=== PATIENT | female | born 1995 | race African-American/Black ===

== ENCOUNTER 2018-07-01 14:01 | Emergency (ER) | payer SELFPAY ==
[~2018-07-01] VITALS: Ht 162.6 cm; Wt 74.8 kg
[~2018-07-01 14:01] MED LIST: AGM875T PO; ALBU17AE23 IH; CEFP500T4 PO; CEPH500C PO; DOXY100C2 PO; IBUP400T22 PO; METH4TAB PO; METO10TA3 PO; ONDAN4ODT PO; PRCD5U PO; PRD20T PO; SLMFT1E INH; TRAM50TA2 PO
--- OUTSIDE RECORDS SUMMARY | 2018-07-01 14:06 | XMS REPORT | CCD ---
Author Author HEATHER GODFREY Unknown Address [address] [place], [place] [address] Care Team Providers Care Compressed Gas Equipment Mechanic Name Role Phone TRISTEN KEANE, PERFECTO Wright Attphys CEDRICKKENN ANTONsurselma Vital Signs Unknown or Not Available. Allergies Allergy Code Allergy Type Reaction Status No Known Allergies 0 No known allergies Active Procedures Procedure Code Procedure Type Date CT ABD AND PELVIS W/O CONTRAST 190666624 SNOMED CT 2015 COMPREHENSIVE METABOLIC PANEL 713015542 SNOMED CT 2015 CBC W/ AUTO DIFF (RFLX MAN DIFF IF IND) 4130657 SNOMED CT 12/17/2015 CULTURE URINE 493162767 SNOMED CT 12/17/2015 TEST URINE 063204508 SNOMED CT 12/17/2015 UA ROUTINE C&S IF IND 406827292 SNOMED CT 12/17/2015 ^CULTURE AEROBIC ID [id number] SNOMED CT 12/17/2015 ^CULTURE URINE IDENTIFICATION 494000792 SNOMED CT 2015 ^CBC W/AUTO DIFF 8435725 SNOMED CT 12/17/2015 ^UA WITH MICRO 082374226 SNOMED CT 12/17/2015 History of Immunizations Unknown or Not Available. Problems Unknown or Not Available. Results COMPREHENSIVE METABOLIC PANEL - Collect Date/Time: 12/17/2015 21:10 Test Name Code Test Result Test Units Test Ref Range GLUCOSE 2345-7 96 MG/DL L=70 H=100 SODIUM 2951-2 139 MEQ/L L=135 H=148 POTASSIUM 2823-3 3.7 MEQ/L L=3.5 H=5.3 CHLORIDE 2075-0 107 MEQ/L L=96 H=110 CO2 2028-9 19 MEQ/L L=22 H=29 BUN 3094-0 5 MG/DL L=8 H=22 CREATININE 2160-0 0.6 MG/DL L=0.6 H=1.6 SGOT/AST 1920-8 12 IU/L L=10 H=40 SGPT/ALT 1742-6 13 IU/L L=8 H=54 ALK PHOS 6768-6 60 IU/L L=35 H=115 TOTAL PROTEIN 2885-2 7.2 G/DL L=5.5 H=8.5 ALBUMIN 1751-7 4.3 G/DL L=3.1 H=5.4 TOTAL BILI 1975-2 0.7 MG/DL L=0.0 H=1.5 CALCIUM 19286-8 8.9 MG/DL L=8.2 H=10.6 AGE 20 yrs GFR NonAA 126 GFR AA 153 eGFR >60 N/A eGFR AA* >60 N/A CBC W/ AUTO DIFF (RFLX MAN DIFF IF IND) - Collect Date/Time: 12/17/2015 21:10 Test Name Code Test Result Test Units Test Ref Range WBC 22854-7 10.0 TH/CMM L=4.5 H=10.8 RBC 789-8 3.63 ML/CMM L=4.20 H=5.40 HGB 718-7 10.9 G/DL L=12.0 H=16.0 HCT 4544-3 33.2 % L=37.0 H=47.0 MCV 92 FL L=81 H=99 MCH 30.0 PG L=27.0 H=33.0 MCHC 32.8 G/DL L=31.0 H=36.0 RDW SD 46 FL L=36 H=50 RDW CV 13.6 % L=0.0 H=14.8 MPV 10.2 FL L=9.3 H=12.5 PLT 777-3 202 TH/CMM L=130 H=440 NRBC# 0.00 TH/CMM L=0.00 H=0.00 NRBC% 0.0 /100WBC L=0.0 H=2.0 %NEUT 78.0 % %LYMP 8.8 % %MONO 12.5 % %EOS 0.2 % %BASO 0.1 % #NEUT 7.84 TH/CMM L=2.10 H=8.20 #LYMP 0.88 TH/CMM L=0.90 H=5.20 #MONO 1.25 TH/CMM L=0.16 H=1.00 #EOS 0.02 TH/CMM L=0.00 H=0.80 #BASO 0.01 TH/CMM L=0.00 H=0.20 MANUAL DIFF NOT IND N/A UA ROUTINE C&S IF IND - Collect Date/Time: 12/17/2015 20:00 Test Name Code Test Result Test Units Test Ref Range COLOR YELLOW N/A NL: YELLOW APPEARANCE HAZY N/A NL: CLEAR SPEC GRAV >=1.030 N/A NL: 1.002 - 1.022 pH 6.0 N/A NL: 5 - 9 PROTEIN 30 N/A NL: NEGATIVE mg/dl GLUCOSE NEGATIVE N/A NL: NEGATIVE mg/dl KETONE 40 N/A NL: NEGATIVE mg/dl BILIRUBIN NEGATIVE N/A NL: NEGATIVE BLOOD LARGE N/A NL: NEGATIVE NITRITE POSITIVE N/A NL: NEGATIVE LEUK SCREEN NEGATIVE N/A NL: NEGATIVE MICRO INDICATED? SEE BELOW N/A WBC/HPF 5-10 N/A NL: NEGATIVE RBC/HPF 0-5 N/A NL: NEGATIVE CASTS/LPF NEGATIVE N/A NL: NEGATIVE CRYSTALS NEGATIVE N/A NL: NEGATIVE MUCOUS THRDS 1+ N/A NL: NEGATIVE BACTERIA 3+++ N/A NL: NEGATIVE EPITH CELLS 2++ SQUAMOUS N/A NL: NEGATIVE TRICHOMONAS NEGATIVE N/A NL: NEGATIVE YEAST NEGATIVE N/A NL: NEGATIVE CULT SET UP? YES N/A TEST URINE - Collect Date/Time: 12/17/2015 20:00 Test Name Code Test Result Test Units Test Ref Range TEST UR 2106-3 NEGATIVE N/A Active Medications Unknown or Not Available. Medications Administered During Visit Unknown or Not Available. Encounters Encounter Diagnosis Diagnosis Code Start Date Urinary tract infectious disease 54643743 12/17/2015 Social History Smoking Status Code Start Date End Date Never smoker 599818687 Patient Decision Aids Unknown or Not Available. Discharge Instructions You were admitted to [facility] on 12/17/2015 18:09 with a principal diagnosis of Urinary tract infection, site not specified You had the following tests done: CBC W/ AUTO DIFF (RFLX MAN DIFF IF IND) COMPREHENSIVE METABOLIC PANEL TEST URINE UA ROUTINE C&S IF IND You were discharged from [facility] on 12/18/2015 00:05 Should you have any questions prior to discharge, please contact a member of your healthcare team. If you have left the hospital and have any questions, please contact your primary care physician. Chief Complaint and Reason For Visit Chief Complaint Date of Onset PAIN ALL OVER URINARY PROBLEM Function Status Unknown or Not Available. Plan of Care Unknown or Not Available. Referral/Transition of Care Unknown or Not Available.
--- OUTSIDE RECORDS SUMMARY | 2018-07-01 14:06 | XMS REPORT | CCD ---
Author Author CAITIE QUIROZ Organization Unknown Address [address] [facility] [address] [place] [address] Care Team Providers Care Senior Network Architect Name Role Phone CHURCH, PRIYANK DO Attphys CHURCH, PRIYANK DO Prisurg Allergies Allergy Code Allergy Type Reaction Status No Known Allergies 0 Drug allergy Active Active Medications Unknown or Not Available. Problems Unknown or Not Available. Procedures Procedure Code Procedure Type Date CT HEAD W/O CONTRAST 462618999 SNOMED CT 03/20/2016 Results Unknown or Not Available. Encounters Encounter Diagnosis Diagnosis Code Start Date Postconcussion syndrome 58212774 03/20/2016 Function Status Unknown or Not Available. History of Immunizations Unknown or Not Available. Plan of Treatment Unknown or Not Available. Social History Smoking Status Code Start Date End Date Never smoker [id number] Vital Signs Unknown or Not Available. Function Status Unknown or Not Available. Goals Unknown or Not Available. ASSESSMENTS Unknown or Not Available. Health Concerns Section Unknown or Not Available.
--- OUTSIDE RECORDS SUMMARY | 2018-07-01 14:06 | XMS REPORT | CCD ---
Author Author CATE KINNEY Organization Unknown Address [address] [facility] [address] [place], [place] [address] Care Team Providers Care Locomotive Inspector Name Role Phone ROSINA PHYS, NIMO ER Attphys ROSINA PHYS, NIMO ER Prisurg Vital Signs Unknown or Not Available. Allergies Allergy Code Allergy Type Reaction Status No Known Allergies 0 No known allergies Active Procedures Procedure Code Procedure Type Date CX CHEST [address] 07/26/2015 C REACTIVE PROTEIN 66703118 SNOMED CT 07/26/2015 ^CBC W/AUTO DIFF 3546637 SNOMED CT 07/26/2015 RAPID DRUG SCREEN 797289605 SNOMED CT 07/26/[address] 07/26/2015 TROPONIN-I ADV 017278271 SNOMED CT 07/26/2015 D DIMER QUANT 089322517 SNOMED CT 07/26/2015 COMPREHENSIVE METABOLIC PANEL 795002252 SNOMED CT 2015 CBC W/ AUTO DIFF (RFLX MAN DIFF IF IND) 6903810 SNOMED CT 07/26/2015 History of Immunizations Unknown or Not Available. Problems Unknown or Not Available. Results COMPREHENSIVE METABOLIC PANEL - Collect Date/Time: 07/26/2015 15:30 Test Name Code Test Result Test Units Test Ref Range GLUCOSE 2345-7 77 MG/DL L=70 H=100 SODIUM 2951-2 142 MEQ/L L=135 H=148 POTASSIUM 2823-3 3.6 MEQ/L L=3.5 H=5.3 CHLORIDE 2075-0 108 MEQ/L L=96 H=110 CO2 2028-9 21 MEQ/L L=22 H=29 BUN 3094-0 8 MG/DL L=8 H=22 CREATININE 2160-0 0.7 MG/DL L=0.6 H=1.6 SGOT/AST 1920-8 17 IU/L L=10 H=40 SGPT/ALT 1742-6 11 IU/L L=8 H=54 ALK PHOS 6768-6 64 IU/L L=35 H=115 TOTAL PROTEIN 2885-2 7.4 G/DL L=5.5 H=8.5 ALBUMIN 1751-7 4.3 G/DL L=3.1 H=5.4 TOTAL BILI 1975-2 0.7 MG/DL L=0.0 H=1.5 CALCIUM 98522-0 9.7 MG/DL L=8.2 H=10.6 AGE 20 yrs GFR NonAA 106 GFR AA 128 eGFR >60 N/A eGFR AA* >60 N/A RAPID DRUG SCREEN - Collect Date/Time: 07/26/2015 17:59 Test Name Code Test Result Test Units Test Ref Range Cannabinoids (THC) NON-NEGATIVE N/A NEG: < 50 ng/ml Phencyclidine (PCP) NEGATIVE N/A NEG: < 25 ng/ ml Cocaine NEGATIVE N/A NEG: < 300 ng/ml Methamphetamine NEGATIVE N/A NEG: < 1000 ng/ml Opiates NEGATIVE N/A NEG: < 300 ng/ml Amphetamine NEGATIVE N/A NEG: < 1000 ng/ml Benzodiazepines NEGATIVE N/A NEG: < 300 ng/ml Tricyclic Antidepres NEGATIVE N/A NEG: < 300 ng/ ml Methadone NEGATIVE N/A NEG: < 300 ng/ml Barbiturates NEGATIVE N/A NEG: < 200 ng/ml Oxycodone NEGATIVE N/A NEG: < 100 ng/ml Propoxyphene (PPX) NEGATIVE N/A NEG: < 300 ng/ ml CBC W/ AUTO DIFF (RFLX MAN DIFF IF IND) - Collect Date/Time: 07/26/2015 15:30 Test Name Code Test Result Test Units Test Ref Range WBC 07941-1 5.4 TH/CMM L=4.5 H=10.8 RBC 789-8 4.11 ML/CMM L=4.20 H=5.40 HGB 718-7 12.1 G/DL L=12.0 H=16.0 HCT 4544-3 37.5 % L=37.0 H=47.0 MCV 91 FL L=81 H=99 MCH 29.4 PG L=27.0 H=33.0 MCHC 32.3 G/DL L=31.0 H=36.0 RDW SD 48 FL L=36 H=50 RDW CV 14.2 % L=0.0 H=14.8 MPV 9.8 FL L=9.3 H=12.5 PLT 777-3 248 TH/CMM L=130 H=440 NRBC# 0.00 TH/CMM L=0.00 H=0.00 NRBC% 0.0 /100WBC L=0.0 H=2.0 %NEUT 43.0 % %LYMP 42.1 % %MONO 10.2 % %EOS 4.3 % %BASO 0.4 % #NEUT 2.32 TH/CMM L=2.10 H=8.20 #LYMP 2.27 TH/CMM L=0.90 H=5.20 #MONO 0.55 TH/CMM L=0.16 H=1.00 #EOS 0.23 TH/CMM L=0.00 H=0.80 #BASO 0.02 TH/CMM L=0.00 H=0.20 MANUAL DIFF NOT IND N/A D DIMER QUANT - Collect Date/Time: 07/26/2015 15:30 Test Name Code Test Result Test Units Test Ref Range D-DIMER QUANT 71845-6 <0.19 MG/L FEU L=0.00 H= 0.50 C REACTIVE PROTEIN - Collect Date/Time: 07/26/2015 18:05 Test Name Code Test Result Test Units Test Ref Range C REACTIVE PROTEIN 1988-5 <0.5 MG/DL L=0.0 H= 1.0 TEST - Collect Date/Time: 07/26/2015 15:30 Test Name Code Test Result Test Units Test Ref Range TEST 2118-8 NEGATIVE N/A TROPONIN-I ADV - Collect Date/Time: 07/26/2015 15:30 Test Name Code Test Result Test [place] [address]-0 <0.04 ng/mL L=0.04 H= 0.40 Active Medications Unknown or Not Available. Medications Administered During Visit Unknown or Not Available. Encounters Encounter Diagnosis Diagnosis Code Start Date Pleuritic pain 8365412 07/26/2015 Social History Smoking Status Code Start Date End Date Never smoker 771976360 Patient Decision Aids Unknown or Not Available. Discharge Instructions You were admitted to [facility] on 07/26/2015 with a principal diagnosis of Pleuritic pain . You were discharged from [facility] on 07/26/2015. Should you have any questions prior to discharge, please contact a member of your healthcare team. If you have left the hospital and have any questions, please contact your primary care physician. Chief Complaint and Reason For Visit Chief Complaint Date of Onset CHEST PAIN Function Status Unknown or Not Available. Plan of Care Unknown or Not Available. Referral/Transition of Care Unknown or Not Available.
--- OUTSIDE RECORDS SUMMARY | 2018-07-01 14:06 | XMS REPORT | CCD ---
Author Author CAITIE QUIROZ Organization Unknown Address [address] [facility] [address] [place] [address] Care Team Providers Care Parcel Contractor Name Role Phone CHURCH, PRIYANK DO Attphys CHURCH, PRIYANK DO Prisurg Allergies Allergy Code Allergy Type Reaction Status No Known Allergies 0 Drug allergy Active Active Medications Unknown or Not Available. Problems Unknown or Not Available. Procedures Procedure Code Procedure Type Date CT HEAD W/O CONTRAST 468493101 SNOMED CT 03/20/2016 Results Unknown or Not Available. Encounters Encounter Diagnosis Diagnosis Code Start Date Postconcussion syndrome 70731609 03/20/2016 Function Status Unknown or Not Available. History of Immunizations Unknown or Not Available. Plan of Treatment Unknown or Not Available. Social History Smoking Status Code Start Date End Date Never smoker 142324033 Vital Signs Unknown or Not Available. Function Status Unknown or Not Available. Goals Unknown or Not Available. ASSESSMENTS Unknown or Not Available. Health Concerns Section Unknown or Not Available.
--- OUTSIDE RECORDS SUMMARY | 2018-07-01 14:07 | XMS REPORT | CCD ---
Author Author CATE KINNEY Organization Unknown Address [address] [facility] [address] [place], [place] [address] Care Team Providers Care Down Filler Name Role Phone ROSINA PHYS, NIMO ER Attphys ROSINA PHYS, NIMO ER Prisurg Vital Signs Unknown or Not Available. Allergies Allergy Code Allergy Type Reaction Status No Known Allergies 0 No known allergies Active Procedures Procedure Code Procedure Type Date CX CHEST [address] 07/26/2015 C REACTIVE PROTEIN 17403745 SNOMED CT 07/26/2015 ^CBC W/AUTO DIFF 9427871 SNOMED CT 07/26/2015 RAPID DRUG SCREEN 957771761 SNOMED CT 07/26/[address] 07/26/2015 TROPONIN-I ADV 732000485 SNOMED CT 07/26/2015 D DIMER QUANT 195896610 SNOMED CT 07/26/2015 COMPREHENSIVE METABOLIC PANEL 102765909 SNOMED CT 2015 CBC W/ AUTO DIFF (RFLX MAN DIFF IF IND) 6324224 SNOMED CT 07/26/2015 History of Immunizations Unknown [...] BILI 1975-2 0.7 MG/DL L=0.0 H=1.5 CALCIUM 62975-9 9.7 MG/DL L=8.2 H=10.6 AGE 20 yrs [...] Result Test Units Test Ref Range WBC 21769-6 5.4 TH/CMM L=4.5 H=10.8 RBC 789-8 4.11 [...] Test Units Test Ref Range D-DIMER QUANT 71395-9 <0.19 MG/L FEU L=0.00 H= 0.50 C [...] Test [place] [address]-7 <0.04 ng/mL L=0.04 H= 0.40 Active Medications Unknown or Not Available. Medications Administered During Visit Unknown or Not Available. Encounters Encounter Diagnosis Diagnosis Code Start Date Pleuritic pain 4076881 07/26/2015 Social History Smoking Status Code Start Date End Date Never smoker 047280760 Patient Decision Aids Unknown or Not Available. Discharge Instructions You were admitted to [facility] on 07/26/2015 with a principal diagnosis of Pleuritic pain . You were discharged from [facility] on 07/26/2015. Should you have any [...]
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
--- OUTSIDE RECORDS SUMMARY | 2018-07-01 14:07 | XMS REPORT | CCD ---
Author Author CATE KINNEY Organization Unknown Address [address] [facility] [address] [place], [place] [address] Care Team Providers Care Director Corporate Compliance Name Role Phone [facility], KENN DO Attphys [facility], KENN DO Prisurg Vital Signs Unknown or Not Available. Allergies Allergy Code Allergy Type Reaction Status No Known Allergies 0 No known allergies Active Procedures Unknown or Not Available. History of Immunizations Unknown or Not Available. Problems Unknown or Not Available. Results Unknown or Not Available. Active Medications Unknown or Not Available. Medications Administered During Visit Unknown or Not Available. 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 Discharge Instructions You were admitted to [facility] on 07/18/2015 10:22 with a principal diagnosis of Chondrocostal junction syndrome [Tietze] You were discharged from [facility] on 07/18/2015 11:36 Should you have any questions prior to discharge, please contact a member of your healthcare team. If you have left the hospital and have any questions, please contact your primary care physician. Chief Complaint and Reason For Visit Chief Complaint Date of Onset CHEST PAIN Function Status Unknown or Not Available. Referral/Transition of Care Unknown or Not Available.
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
[2018-07-01 14:29] LABS: BILIRUBIN,URINE NEGATIVE (NEGATIVE); CLARITY,URINE SLIGHTLY CLOUDY; COLOR,URINE YELLOW; GLUCOSE, URINE (UA) NEGATIVE (NEGATIVE); KETONES,URINE NEGATIVE (NEGATIVE); LEUKOCYTE ESTERASE ,URINE 3+ (NEGATIVE); NITRITE,URINE POSITIVE (NEGATIVE); PH,URINE 7 (5-9); PROTEIN,URINE 2+ (NEGATIVE); UROBILINOGEN,URINE NORMAL (NORMAL)
[2018-07-01 14:36] LABS: BACTERIA,URINE MODERATE /HPF; RBC,URINE RARE /HPF; WBC,URINE >100 /HPF
--- NOTE | 2018-07-01 14:53 | NUR ---
IN TALKING TO PT AT THIS TIME.
[2018-07-01] MEDS ORDERED: cefTRIAXone 1,000 MG/2.86 ml vial (IM ONLY) IM ONE (15:00)
[2018-07-01] MEDS ORDERED: CEPH-507 PO (15:02)
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
[2018-07-01] MEDS ORDERED: PHEN-640 PO (15:03)
[2018-07-01] MEDS ORDERED: LIDOCAINE 1% INJ 20 ML 20 ML VIAL ONE (15:05)
[2018-07-01] MEDS ORDERED: LIDOCAINE 1% INJ 20 ML 20 ML VIAL INJ ONE (15:15)
[2018-07-01 15:30] VITALS: BP 121/71
== END 2018-07-01 15:30 | disposition home or self-care (01) ==
LOC: EDUNIT# 14:01 → ER 14:02
DX: J02.9 Acute pharyngitis, unspecified (principal); N39.0 Urinary tract infection, site not specified; J45.909 Unspecified asthma, uncomplicated; Z87.440 Personal history of urinary (tract) infections; Z87.19 Personal history of other diseases of the digestive system
CPT/HCPCS: 81000; 84703; 87077; 87088; 87186; 87430; 96372; 99285

== ENCOUNTER 2019-06-20 12:21 | Inpatient (IN) | payer SELFPAY ==
[~2019-06-20] VITALS: Ht 165.1 cm; Wt 85.3 kg
[~2019-06-20 12:21] MED LIST changes: +CEPH-507 PO; +PHEN-640 PO
[2019-06-20] MEDS ORDERED: RT-ALBUTEROL SULF 2.5 MG/3 ML PRE-MIX VIAL INH STA ×2 (12:27→12:58)
[2019-06-20] MEDS ORDERED: NS IV 1000 ML 1,000 ML IV SCH (12:27)
[2019-06-20] MEDS ORDERED: NS IV 1000 ML 1,000 ML IV ONE (12:27)
[2019-06-20] MEDS ORDERED: AZITHROMYCIN INJECTION 500 MG in NS (IVPB) 250 ML IV ONE (12:30)
[2019-06-20] MEDS ORDERED: cefTRIAXone FOR IV USE 1,000 MG in WATER (STERILE) FOR INJECTION 10 ML IV ONE (12:30)
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
[2019-06-20 12:50] LABS: ABG BASE EXCESS -4.9 MMOL/L (-2.5-2.5); ABG OXYGEN SATURATION 98 % (94-100); ABG PCO2 24 MMHG (35-45); ABG PH 7.48 (7.37-7.43); ABG PO2 76 MMHG (79-93)
[2019-06-20 12:50] LABS: BASOPHILS % (AUTO) 0 % (0-10); EOSINOPHILS # (AUTO) 0.2 10^3/uL (0.0-0.3); EOSINOPHILS % (AUTO) 3 % (0-10); HEMATOCRIT 37 % (35-52); LYMPHOCYTES # (AUTO) 1.4 X 10^3 (1.0-4.0); LYMPHOCYTES % (AUTO) 20 % (12-44); MEAN CORPUSCULAR HEMOGLOBIN 28 PG (25-34); MEAN CORPUSCULAR HGB CONC 32 G/DL (32-36); MEAN CORPUSCULAR VOLUME 87 FL (80-99); MEAN PLATELET VOLUME 9.5 FL (7.4-10.4); MONOCYTES # (AUTO) 0.5 X 10^3 (0.0-1.0); MONOCYTES % (AUTO) 8 % (0-12); NEUTROPHILS # (AUTO) 4.6 X 10^3 (1.8-7.8); NEUTROPHILS % (AUTO) 69 % (42-75); PLATELET COUNT 348 10^3/uL (130-400); RED CELL DISTRIBUTION WIDTH 13.8 % (10.0-14.5); WHITE BLOOD COUNT 6.7 10^3/uL (4.3-11.0)
[2019-06-20 12:51] LABS: ALLENS TEST YES-POS; INSPIRED O2 ROOM AIR; PATIENT TEMP 36.2; VENTILATOR NO
[2019-06-20 13:00] LABS: INR 0.9 (0.8-1.4)
[2019-06-20] MEDS ORDERED: RT-ALBUTEROL/IPRATROPIUM 3 ML (DUONEB) VIAL INH ONE (13:00)
[2019-06-20 13:07] LABS: ALANINE AMINOTRANSFERASE 17 U/L (0-55); ALBUMIN 4.5 GM/DL (3.2-4.5); ALKALINE PHOSPHATASE 93 U/L (40-136); BILIRUBIN,TOTAL 0.4 MG/DL (0.1-1.0); BUN/CREATININE RATIO 12; CALCIUM 9.2 MG/DL (8.5-10.1); CARBON DIOXIDE 17 MMOL/L (21-32); CHLORIDE 109 MMOL/L (98-107); CREATININE SERUM 0.74 MG/DL (0.60-1.30); GFR ESTIMATED > 60; GLUCOSE 86 MG/DL (70-105); POTASSIUM 3.9 MMOL/L (3.6-5.0); SODIUM 139 MMOL/L (135-145); TOTAL PROTEIN 8.3 GM/DL (6.4-8.2)
--- NOTE | 2019-06-20 13:16 | Diagnostic Imaging Report ---
INDICATION: Shortness of breath. TIME OF EXAM: 1:05 PM COMPARISON: Correlation is made with prior chest from 05/09/2010. FINDINGS: The heart size is normal. The pulmonary vascularity is unremarkable. The lungs are clear. No infiltrate, effusion or pneumothorax is detected. IMPRESSION: No acute cardiopulmonary process is detected. Dictated by: Dictated on workstation # [id number]
[2019-06-20] MEDS ORDERED: OSELTAMIVIR 75 MG (TAMIFLU) CAPSULE PO ONE (13:30)
[2019-06-20] MEDS ORDERED: MAGNESIUM 1 GM/100 ML IVPB 200 ML IV ONE (13:58)
[2019-06-20] MEDS ORDERED: KETAMINE/NaCl 50 MG/5 ML SYRINGE (ED ONLY) IV ONE (14:00)
[2019-06-20] MEDS: MAGNESIUM 1 GM/100 ML IVPB 100 ML IV SCH ×2 (14:20→14:21)
[2019-06-20] MEDS ORDERED: methylPREDNISolone 125 MG (Solu-MEDROL) VIAL IVP ONE (15:00)
[2019-06-20 15:07] VITALS: BP 133/89
--- NOTE | 2019-06-20 15:09 | NUR ---
PATIENT INCREASED WORK OF BREATHING RT HERE WILL PLACE ON VAPOR THERM.
[2019-06-20] MEDS ORDERED: ACETAMINOPHEN 500 MG TAB (TYLENOL) PO ONE (15:15)
--- NOTE | 2019-06-20 15:15 | NUR ---
UP TO BS.
--- NOTE | 2019-06-20 15:18 | NUR ---
ROOM OBTAINED NURSE TO CALL FOR REPORT.
[2019-06-20] MEDS ORDERED: KETOROLAC 30 MG/ML VIAL IVP ONE (15:30)
[2019-06-20 15:31] LABS: BILIRUBIN,URINE NEGATIVE (NEGATIVE); CLARITY,URINE SL CLOUDY; COLOR,URINE YELLOW; GLUCOSE, URINE (UA) NEGATIVE (NEGATIVE); KETONES,URINE TRACE (NEGATIVE); LEUKOCYTE ESTERASE ,URINE NEGATIVE (NEGATIVE); NITRITE,URINE NEGATIVE (NEGATIVE); PH,URINE 7.5 (5-9); PROTEIN,URINE NEGATIVE (NEGATIVE)
[2019-06-20 15:37] LABS: BACTERIA,URINE MODERATE /HPF; WBC,URINE RARE /HPF
--- NOTE | 2019-06-20 16:08 | NUR ---
TO ROOM REPORTS PAIN BETTER AND FEELING LIKE HER BREATHING IS BETTER WITH VAPORTHERM
[2019-06-20 16:09] VITALS: BP 137/89
[2019-06-20] MEDS ORDERED: LORazepam INJ 2 MG/ML (ATIVAN) VIAL IVP ONE (16:15)
--- NOTE | 2019-06-20 17:24 | NUR ---
PAIGE BLOUNT S admitted to room CU3-1, with an admitting diagnosis of ASTHMA,FLU, HYPOXIA, on 06/20/19 from ER via , accompanied by STAFF.PAIGE BLOUNT introduced to surroundings, call light, bed controls, phone, TV, temperature control, lights, meal times, smoking policy, visitor policy, side rail policy, bathrooms and showers. Patient Rights given to patient in the handbook. PAIGE BLOUNT verbalizes understanding that [facility] is not responsible for the loss or damage to any personal effects or valuables that are kept in the patients posession during their hospitalization. The following Patient Care Plans were discussed with the PT: Discharge Planning, INEFFECTIVE BREATHING PATTERN,ANXIETY, and KNOWLEDGE DEFICIT. PAIGE BLOUNT verbalizes understanding of Interdisciplinary Patient Education. Patient and family were informed about the Rapid Response Team and its purpose.
[2019-06-20 17:40] VITALS: BP 93/66
[2019-06-20] MEDS ORDERED: LACTATED RINGERS 1,000 ML IV ONE (17:40)
[2019-06-20] MEDS: LACTATED RINGERS 1,000 ML IV SCH (18:18)
[2019-06-20] MEDS ORDERED: RT-ALBUTEROL/IPRATROPIUM 3 ML (DUONEB) VIAL INH PRN (19:30)
[2019-06-20 20:00] VITALS: BP 136/74
[2019-06-20] MEDS ORDERED: ONDANSETRON 4 MG/2 ML (SDV) Z0FRAN IVP PRN (20:00)
[2019-06-20] MEDS: KETOROLAC 15 MG/ML VIAL IVP PRN (20:11)
[2019-06-20] MEDS: RT-ALBUTEROL/IPRATROPIUM 3 ML (DUONEB) VIAL INH SCH (22:01)
[2019-06-20] MEDS: ACETAMINOPHEN 500 MG TAB (TYLENOL) PO PRN (22:27)
--- NOTE | 2019-06-20 23:58 | NUR ---
Patient transferred to [facility], report given to GAIL Calderon.
[2019-06-21] VITALS (9 sets, daily range): BP systolic 109–142; BP diastolic 64–80
[2019-06-21] MEDS ORDERED: CYCLOBENZAPRINE 10 MG (FLEXERIL) TAB PO SCH
[2019-06-21] MEDS: methylPREDNISolone 40 MG/ML (Solu-MEDROL) VIAL IV SCH ×5 (00:18→23:57)
[2019-06-21] MEDS: RT-ALBUTEROL/IPRATROPIUM 3 ML (DUONEB) VIAL INH SCH ×6 (02:33→20:47)
[2019-06-21] MEDS: LACTATED RINGERS 1,000 ML IV SCH ×2 (02:58→10:54)
[2019-06-21 04:26] LABS: BASOPHILS % (AUTO) 0 % (0-10); EOSINOPHILS % (AUTO) 0 % (0-10); HEMATOCRIT 29 % (35-52); HEMOGLOBIN 9.6 G/DL (11.5-16.0); LYMPHOCYTES % (AUTO) 15 % (12-44); MEAN CORPUSCULAR HEMOGLOBIN 28 PG (25-34); MEAN CORPUSCULAR HGB CONC 33 G/DL (32-36); MEAN CORPUSCULAR VOLUME 86 FL (80-99); MONOCYTES # (AUTO) 0.1 X 10^3 (0.0-1.0); MONOCYTES % (AUTO) 1 % (0-12); NEUTROPHILS # (AUTO) 5.5 X 10^3 (1.8-7.8); NEUTROPHILS % (AUTO) 84 % (42-75); PLATELET COUNT 282 10^3/uL (130-400); RED CELL DISTRIBUTION WIDTH 13.5 % (10.0-14.5); WHITE BLOOD COUNT 6.5 10^3/uL (4.3-11.0)
[2019-06-21 04:55] LABS: ALANINE AMINOTRANSFERASE 14 U/L (0-55); ALBUMIN 3.8 GM/DL (3.2-4.5); ALKALINE PHOSPHATASE 81 U/L (40-136); BILIRUBIN,TOTAL 0.1 MG/DL (0.1-1.0); BUN/CREATININE RATIO 8; CALCIUM 8.7 MG/DL (8.5-10.1); CARBON DIOXIDE 13 MMOL/L (21-32); CHLORIDE 114 MMOL/L (98-107); CREATININE SERUM 0.64 MG/DL (0.60-1.30); GFR ESTIMATED > 60; GLUCOSE 150 MG/DL (70-105); MAGNESIUM 2.2 MG/DL (1.6-2.4); POTASSIUM 4.1 MMOL/L (3.6-5.0); SODIUM 138 MMOL/L (135-145); TOTAL PROTEIN 7.1 GM/DL (6.4-8.2)
[2019-06-21] MEDS: ACETAMINOPHEN 500 MG TAB (TYLENOL) PO PRN (06:01)
[2019-06-21] MEDS: KETOROLAC 15 MG/ML VIAL IVP PRN ×2 (06:01→20:03)
[2019-06-21] MEDS ORDERED: FLU QUADRIvalent (5+ YOA) 2019-2020 (AFLURIA) 0.5 ML IM ONE (07:00)
[2019-06-21] MEDS: OSELTAMIVIR 75 MG (TAMIFLU) CAPSULE PO SCH ×2 (08:43→20:05)
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
[2019-06-21] MEDS ORDERED: KETOROLAC 15 MG/ML VIAL IVP ONE (10:45)
[2019-06-21] MEDS ORDERED: KETOROLAC 15 MG/ML VIAL ONE (10:46)
--- NOTE | 2019-06-21 10:50 | Diagnostic Imaging Report ---
INDICATION: Asthma and hypoxia. Time of exam 10:20 AM Correlation is made with prior chest from 06/20/2019. The heart size is normal. The pulmonary vascularity is unremarkable. The lungs are clear. No infiltrate, effusion or pneumothorax is detected. Impression: No acute cardiopulmonary process is detected. Dictated by: Dictated on workstation # [id number]
--- NOTE | 2019-06-21 18:30 | NUR ---
REC'D PER WC FROM [facility] WITH SCHUYLER RN. ALERT AND ORIENTED, REQUESTING ENSURE CLEAR. VSS. SCDS ON.
[2019-06-22] MEDS: ACETAMINOPHEN 500 MG TAB (TYLENOL) PO PRN
[2019-06-22] MEDS: RT-ALBUTEROL/IPRATROPIUM 3 ML (DUONEB) VIAL INH SCH ×3 (02:09→09:27)
[2019-06-22 03:42] VITALS: BP 134/73
[2019-06-22] MEDS: methylPREDNISolone 40 MG/ML (Solu-MEDROL) VIAL IV SCH ×4 (05:52→23:19)
[2019-06-22] MEDS: KETOROLAC 15 MG/ML VIAL IVP PRN (05:52)
[2019-06-22 08:00] VITALS: BP 141/97
[2019-06-22] MEDS ORDERED: RT-IPRATROPIUM (ATROVENT) 0.5MG/2.5ML AMP IH ONE (08:29)
[2019-06-22] MEDS ORDERED: RT-ALBUTEROL SULF 2.5 MG/3 ML PRE-MIX VIAL ONE (08:29)
[2019-06-22] MEDS: OSELTAMIVIR 75 MG (TAMIFLU) CAPSULE PO SCH ×2 (09:36→21:12)
[2019-06-22] MEDS ORDERED: RT-LEVALBUTEROL (XOPENEX) 1.25 MG/3 ML NEB NON-FORMULARY INH PRN (09:45)
--- NOTE | 2019-06-22 09:54 | Progress Note - Hospitalist ---
[facility] 06/22/19 0954: Subjective HPI/CC On Admission Zeinab is a 23 y/o female that presented to the ER with a 2 day history of progressively worsening and shortness of breath. She has a non productive cough. She states nothing was making it better or worse. She has pain in her chest and upper abdomen and she feels it when she is coughing. There is no radiation of the pain outside of those areas. She denies any other pain associated with her illness. She denies any sick contacts. Patient had a positive influenza type B test and chest x-ray showed no acute cardiopulmonary abnormalities. . Subjective/Events-last exam Patient is alert and oriented and in Mild distress. Currently receiving an hour long treatment. Patient states she needed two treatment ahead of there scheduled time because of SOB. She is really adamant about going home but states she is not feeling better, and feels like she may be getting worse. She is having diffuse joint and muscle pain that is currently 7-8/10 and is constant. She has no appetite and has not been drinking a lot. Urinating and passing gas without issue. She has trouble ambulating do to increase in dizziness and shakiness in the legs Patient had a hard time sleeping last night and had chest pain. ROS: Patient is currently positive for SOB, Chest pain, Muscle and Joint pain, Abdominal pain, feeling of Chills Focused Exam Lactate Level 06/20/19 12:38: Lactic Acid Level 1.09 Objective Exam Vital Signs Vital Signs Date Time Temp Pulse Resp B/P (MAP) Pulse Ox O2 Delivery O2 Flow Rate FiO2 06/22/19 08:36 98 06/22/19 08:00 36.8 104 24 141/97 (112) Room Air 06/21/19 04:00 16.00 06/21/19 02:37 32 Capillary Refill : Less Than 3 Seconds General Appearance: Anxious, Mild Distress HEENT: PERRL/EOMI Neck: Non Tender, Supple Respiratory: Accessory Muscle Use, Decreased Breath Sounds, Rhonci, Wheezing Cardiovascular: Normal Peripheral Pulses, Tachycardia, Other (Tender chest ) Gastrointestinal: Soft, Guarding Extremity: No Pedal Edema, Calf Tenderness Neurologic/Psychiatric: Alert, Oriented x3, director regulatory affairs II-XII Norm as Tested Skin: Normal Color, Warm/Dry Lymphatic: No Adenopathy Results/Procedures Lab Patient resulted labs reviewed. Imaging: Reviewed Imaging Report Assessment/Plan Assessment and Plan Assess & Plan/Chief Complaint Influenza - positive for influenza type B - started on Oseltamivir 75 mg BID PO, should be a 5 day course - Symptomatic treatment ( Ketoralac 15mg Q8 PRN for pain, ondansetron for N/V, Cyclobenzaprine for muscle aches). - will add additional pain medications due to increasing pain - Consider moving back to ICU and adding additional oxygen support - Continue breathing treatments, will increase LACS - MAT protocol - Continue to monitor labs Asthma Exacerbation - currently receiving Albuterol/Ipratropium and Methylprednisone for breathing. Will increase Steroid dose and change Albuterol to less cardio specific medications - change medications to PO - Oxygen as needed - Consider Intravenous magnesium if patient does not improve. DVT prophylaxis - SCDs Consider moving patient to ICU if she does not improve, requiring more breathing treatments and has increasing accessory muscle use. Patient is having increasing pain and SOB. Will monitor Clinical Quality Measures DVT/VTE Risk/Contraindication: Risk Factor Score Per Nursin RFS Level Per Nursing on Admit: 3=High ANTONIA ALICEA MD 06/22/19 1431: Subjective HPI/CC On Admission Date Seen by Provider: Jun 22, 2019 Time Seen by Provider: 09:15 Assessment/Plan Assessment and Plan Assess & Plan/Chief Complaint Called to bedside due to SOB and chest tightness. Started on an hour long breathing treatment and she has improved. Still has significant wheezing but denies much SOB. Patient is actually requesting discharge but home discussed how unsafe that would be. Will add Advair and Singulair and increase IV steroids. Discussed with her RN and RT as well. Diagnosis/Problems Diagnosis/Problems (1) Asthma with acute exacerbation in adult Status: Acute Qualifiers: Qualified Codes: J45.901 - Unspecified asthma with (acute) exacerbation (2) Acute respiratory failure with hypoxia Status: Acute (3) Influenza B Status: Acute Supervisory-Addendum Brief Verification & Attestation Participated in pt care: history, MDM, physical Personally performed: exam, history, MDM, supervision of care Care discussed with: Medical Student Procedures: n/a Results interpretation: Verified all documentation Verification and Attestation of Medical Student E/M Service A medical student performed and documented this service in my presence. I reviewed and verified all information documented by the medical student and made modifications to such information, when appropriate. I personally performed the physical exam and medical decision making. Antonia Alicea, Jun 22, 2019,14:31 [facility] Jun 22, 2019 09:54 ANTONIA ALICEA MD Jun 22, 2019 14:31
[2019-06-22 12:00] VITALS: BP 108/57
[2019-06-22] MEDS: RT-ADVAIR HFA 115/21 MCG PER PUFF IH SCH ×2 (14:37→20:48)
[2019-06-22] MEDS: RT-LEVALBUTEROL (XOPENEX) 1.25 MG/3 ML NEB NON-FORMULARY INH SCH ×2 (14:37→20:48)
[2019-06-22] MEDS ORDERED: IOHEXOL 350 MG/ML 100 ML (OMNIPAQUE 350) VIAL IV ONE (15:00)
[2019-06-22] MEDS ORDERED: CATHETER FLUSH 10 ML SYR IV PRN (15:00)
[2019-06-22] MEDS ORDERED: NS 100 ML (IVPB) BAG IV ONE (15:00)
[2019-06-22] MEDS ORDERED: HOLD METFORMIN - RECEIVED CONTRAST 20 ML VIAL IV SCH (15:00)
--- NOTE | 2019-06-22 15:24 | Diagnostic Imaging Report ---
PROCEDURE: CT angiography of the chest with contrast. TECHNIQUE: Multiple contiguous axial images were obtained through the chest after uneventful bolus administration of intravenous contrast. 3D reconstructed CTA MIP acquisitions were also performed. Auto Exposure Controls were utilized during the CT exam to meet ALARA standards for radiation dose reduction. INDICATION: Asthma and influenza as well as shortness of air. COMPARISON: No prior studies are available for comparison. FINDINGS: There is suboptimal opacification of the pulmonary arterial system. Central pulmonary arteries appear to be patent. No filling defect is seen. Segmental and subsegmental branches are limited in evaluation. The thoracic aorta is normal in caliber. No dissection is seen. No pericardial or pleural fluid is identified. Lungs appear to be clear apart from some minimal subsegmental atelectasis in the right middle lobe and lingula. No infiltrate or mass is identified. Upper abdomen is unremarkable. IMPRESSION: 1. Suboptimal opacification of the pulmonary arterial system. No central emboli are seen. 2. Minimal bibasilar subsegmental atelectasis. The study is otherwise unremarkable. Dictated by: Dictated on workstation # [id number]
[2019-06-22 15:36] LABS: ABG BASE EXCESS -4.4 MMOL/L (-2.5-2.5); ABG OXYGEN SATURATION 98 % (94-100); ABG PCO2 29 MMHG (35-45); ABG PH 7.44 (7.37-7.43); ABG PO2 84 MMHG (79-93)
[2019-06-22 15:37] LABS: ALLENS TEST YES-POS; INSPIRED O2 36%; PATIENT TEMP 36.8; VENTILATOR NO
[2019-06-22] MEDS: HYDROcodone/APAP 5 MG/325 MG (LORTAB) TAB PO PRN ×2 (15:40→23:48)
[2019-06-22 16:00] VITALS: BP 156/96
[2019-06-22 20:00] VITALS: BP 146/94
[2019-06-22] MEDS: MONTELUKAST 10 MG (SINGULAIR) TAB PO SCH (21:12)
[2019-06-22 23:22] VITALS: BP 135/76
[2019-06-23 04:00] VITALS: BP 126/64
[2019-06-23] MEDS: RT-LEVALBUTEROL (XOPENEX) 1.25 MG/3 ML NEB NON-FORMULARY INH SCH ×3 (04:25→15:29)
[2019-06-23] MEDS: methylPREDNISolone 40 MG/ML (Solu-MEDROL) VIAL IV SCH ×4 (06:11→23:38)
[2019-06-23 08:00] VITALS: BP 145/77
[2019-06-23] MEDS: OSELTAMIVIR 75 MG (TAMIFLU) CAPSULE PO SCH ×2 (08:38→20:16)
[2019-06-23] MEDS: HYDROcodone/APAP 5 MG/325 MG (LORTAB) TAB PO PRN ×2 (09:04→23:39)
[2019-06-23 12:00] VITALS: BP 128/75
[2019-06-23] MEDS: RT-ADVAIR HFA 115/21 MCG PER PUFF IH SCH ×2 (15:28→19:20)
--- NOTE | 2019-06-23 15:36 | Progress Note - Hospitalist ---
Subjective HPI/CC On Admission Date Seen by Provider: Jun 23, 2019 Time Seen by Provider: 15:32 Zeinab is a 23 y/o female that presented to the ER with a 2 day history of progressively worsening and shortness of breath. She has a non productive cough. She states nothing was making it better or worse. She has pain in her chest and upper abdomen and she feels it when she is coughing. There is no radiation of the pain outside of those areas. She denies any other pain associated with her illness. She denies any sick contacts. Patient had a positive influenza type B test and chest x-ray showed no acute cardiopulmonary abnormalities. . Subjective/Events-last exam Pt report feeling better and at first is requesting to DC home but upon further conversation is just ready to be out of the hospital. She states she would like her breathing treatments to be q4 again if able because she feels more short of breath the last two hours. She does report increased oral intake today and increased UOP. Family at bedside and encouraged her to stay until she is better. Objective Exam Vital Signs Vital Signs Date Time Temp Pulse Resp B/P (MAP) Pulse Ox O2 Delivery O2 Flow Rate FiO2 06/23/19 15:30 99 Room Air 06/23/19 13:00 82 06/23/19 12:00 37.0 18 128/75 (92) 06/22/19 20:00 30.00 21.00 06/22/19 15:34 21 Capillary Refill : Less Than 3 Seconds General Appearance: No Apparent Distress, WD/WN Respiratory: No Accessory Muscle Use, No Respiratory Distress, Wheezing Cardiovascular: Regular Rate, Rhythm, No Murmur Neurologic/Psychiatric: Alert, Oriented x3 Results/Procedures Lab Patient resulted labs reviewed. Imaging: Reviewed Imaging Report Assessment/Plan Assessment and Plan Assess & Plan/Chief Complaint Influenza B Asthma Exacerbation - Continue Oseltamivir 75 mg BID PO - Symptomatic treatment - Continue Advair and Singulair - MAT protocol, increase to Q4 breathing treatments - Continue to monitor labs - Titrate oxygen to keep sats >90 - Will try decreasing steroids today - Consult pulm tomorrow Her plan is to move back to when she discharges and I recommended outpatient follow up with Pulm in DVT prophylaxis - SCDs Diagnosis/Problems Diagnosis/Problems (1) Asthma with acute exacerbation in adult Status: Acute Qualifiers: Asthma severity: unspecified severity Asthma persistence: unspecified Qualified Codes: J45.901 - Unspecified asthma with (acute) exacerbation (2) Acute respiratory failure with hypoxia Status: Acute (3) Influenza B Status: Acute Clinical Quality Measures DVT/VTE Risk/Contraindication: Risk Factor Score Per Nursin RFS Level Per Nursing on Admit: 3=High ANTONIA ALVES MD Jun 23, 2019 15:36
[2019-06-23] MEDS ORDERED: RT-ALBUTEROL/IPRATROPIUM 3 ML (DUONEB) VIAL INH PRN (15:45)
[2019-06-23 16:59] VITALS: BP 110/59
[2019-06-23] MEDS: RT-ALBUTEROL/IPRATROPIUM 3 ML (DUONEB) VIAL INH SCH ×2 (19:20→21:59)
[2019-06-23] MEDS: MONTELUKAST 10 MG (SINGULAIR) TAB PO SCH (20:16)
[2019-06-23 20:59] VITALS: BP 133/84
[2019-06-24 00:15] VITALS: BP 120/61
[2019-06-24] MEDS: RT-ALBUTEROL/IPRATROPIUM 3 ML (DUONEB) VIAL INH SCH ×6 (02:00→21:46)
[2019-06-24 04:45] VITALS: BP 131/62
[2019-06-24 06:07] LABS: HEMOGLOBIN 10.5 G/DL (11.5-16.0); MEAN PLATELET VOLUME 10.1 FL (7.4-10.4); WHITE BLOOD COUNT 10.6 10^3/uL (4.3-11.0)
[2019-06-24] MEDS: methylPREDNISolone 40 MG/ML (Solu-MEDROL) VIAL IV SCH ×4 (06:11→23:54)
[2019-06-24 06:23] LABS: BUN/CREATININE RATIO 18; CALCIUM 8.9 MG/DL (8.5-10.1); CARBON DIOXIDE 17 MMOL/L (21-32); CHLORIDE 105 MMOL/L (98-107); CREATININE SERUM 0.66 MG/DL (0.60-1.30); GFR ESTIMATED > 60; GLUCOSE 122 MG/DL (70-105); POTASSIUM 4.1 MMOL/L (3.6-5.0); SODIUM 137 MMOL/L (135-145)
[2019-06-24 08:00] VITALS: BP 102/59
[2019-06-24] MEDS: OSELTAMIVIR 75 MG (TAMIFLU) CAPSULE PO SCH ×2 (08:38→19:44)
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
[2019-06-24 12:00] VITALS: BP 118/69
--- NOTE | 2019-06-24 12:58 | NUR ---
"RD ASSESSMENT PMHx: no significant PMH PT INTERACTION: Pt was awake and pleasant during nutrition assessment. Pt states current appetite is poor and has been since 06/20. Note avg PO intake of 52% x4d, per chart review. Pt states following a regular diet at home and has no issues with chewing/swallowing food. Pt states some issues with nausea and one episode of vomiting on 06/22. Pt states some issues with constipation and states her last BM was 06/20. Note last BM recorded on 06/23 and pt not currently on bowel regimen, per chart review. Pt states recent 20-30# wt gain x6mon. Note 23# wt gain x1yr, per chart review. ABNORMAL NUTRITION-RELATED LAB VALUES LOW: HIGH: glu 122 Est. kcal needs: 3501-7717 kcal | 15-20 kcal/kg Est. Pro needs: 68-86 g Pro | 0.8-1.0 g Pro/kg PES STATEMENT: Inadequate oral intake (NI-2.1) related to loss of appetite | nausea | vomiting | constipation as evidenced by pt interview | avg PO intake 52% x4d INTERVENTION: Continue with current diet order of Regular diet. Add Ensure Enlive (vary) to meals BID, for increased kcal intake. Provides 350 kcal and 13 g Pro per serving. Will continue to follow and reassess as pt needs and status change. MONITOR/EVALUATE: PO Intake; Plan of Care; Hydration Status; Weight Status; Lab Values Rema Agudelo, MS, RD, LD"
--- NOTE | 2019-06-24 14:11 | Progress Note - Hospitalist ---
Subjective HPI/CC On Admission Date Seen by Provider: Jun 24, 2019 Time Seen by Provider: 14:05 Zeinab is a 23 y/o female that presented to the ER with a 2 day history of progressively worsening and shortness of breath. She has a non productive cough. She states nothing was making it better or worse. She has pain in her chest and upper abdomen and she feels it when she is coughing. There is no radiation of the pain outside of those areas. She denies any other pain associated with her illness. She denies any sick contacts. Patient had a positive influenza type B test and chest x-ray showed no acute cardiopulmonary abnormalities. . Subjective/Events-last exam Pt reports feeling better. She has been up out of bed and was able to walk to the bathroom without help. Eating better. Still SOB but better than yesterday. Objective Exam Vital Signs Vital Signs Date Time Temp Pulse Resp B/P (MAP) Pulse Ox O2 Delivery O2 Flow Rate FiO2 06/24/19 12:21 85 06/24/19 10:29 98 Room Air 06/24/19 08:00 36.9 18 102/59 (73) 06/22/19 20:00 30.00 21.00 06/22/19 15:34 21 Capillary Refill : Less Than 3 Seconds General Appearance: No Apparent Distress, WD/WN Respiratory: No Accessory Muscle Use, No Respiratory Distress, Wheezing Cardiovascular: Regular Rate, Rhythm, No Murmur Neurologic/Psychiatric: Alert, Oriented x3 Results/Procedures Lab Laboratory Tests 06/24/19 04:55 Patient resulted labs reviewed. Imaging: Reviewed Imaging Report Assessment/Plan Assessment and Plan Assess & Plan/Chief Complaint Influenza B Asthma Exacerbation - Continue Oseltamivir 75 mg BID PO - Symptomatic treatment - Continue Advair and Singulair - MAT protocol, continue Q4 breathing treatments - Continue to monitor labs - Titrate oxygen to keep sats >90 - Continue Solu-Medrol - Consult pulm, appreciate recs DVT prophylaxis - SCDs Diagnosis/Problems Diagnosis/Problems (1) Asthma with acute exacerbation in adult Status: Acute Qualifiers: Asthma severity: unspecified severity Asthma persistence: unspecified Qualified Codes: J45.901 - Unspecified asthma with (acute) exacerbation (2) Acute respiratory failure with hypoxia Status: Acute (3) Influenza B Status: Acute Clinical Quality Measures DVT/VTE Risk/Contraindication: Risk Factor Score Per Nursin RFS Level Per Nursing on Admit: 3=High ANTONIA ALVES MD Jun 24, 2019 14:11
[2019-06-24 16:00] VITALS: BP 112/66
[2019-06-24] MEDS: MONTELUKAST 10 MG (SINGULAIR) TAB PO SCH (19:44)
[2019-06-24 20:00] VITALS: BP 133/77
[2019-06-24] MEDS ORDERED: ADVAIR HFA 115/21 MCG INHALER 8 GM IH SCH (20:00)
[2019-06-24] MEDS: HYDROcodone/APAP 5 MG/325 MG (LORTAB) TAB PO PRN (23:58)
[2019-06-25] VITALS: BP 105/58
[2019-06-25] MEDS: RT-ALBUTEROL/IPRATROPIUM 3 ML (DUONEB) VIAL INH SCH ×2 (02:32→09:21)
[2019-06-25 04:00] VITALS: BP 123/76
[2019-06-25] MEDS: methylPREDNISolone 40 MG/ML (Solu-MEDROL) VIAL IV SCH (05:48)
[2019-06-25 08:00] VITALS: BP 135/85
[2019-06-25] MEDS: OSELTAMIVIR 75 MG (TAMIFLU) CAPSULE PO SCH (08:44)
[2019-06-25] MEDS: ACETAMINOPHEN 500 MG TAB (TYLENOL) PO PRN (08:45)
--- NOTE | 2019-06-25 10:23 | Pulmonary Progress Note ---
Subjective Date Seen by a Provider: Jun 25, 2019 Time Seen by a Provider: 10:10 Subjective/Events-last exam The patient is awake and alert, resting comfortably in her bed. She is answering all questions appropriately and fully cooperates with the physical exam. She states that she is feels much better today. Her shortness of breath is greatly improved and she has no sensation of wheezes. She is still having intermittent cough that is non-productive. She denies chest pain or fever but is still experiencing occasional chills. She has no questions or concerns at this time. Sepsis Event Evaluation Height, Weight, BMI Height: 5'4.00" Weight: 165lbs. oz. 74.832560xd; 31.29 BMI Method:Stated Exam Exam Vital Signs Date Time Temp Pulse Resp B/P (MAP) Pulse Ox O2 Delivery O2 Flow Rate FiO2 06/25/19 08:40 Room Air 06/25/19 08:00 36.5 66 18 135/85 (102) 100 Room Air 06/25/19 07:00 69 06/25/19 04:00 36.6 75 16 123/76 (92) 100 Room Air 06/25/19 02:33 98 Room Air 06/25/19 01:00 62 06/25/19 00:00 36.2 67 18 105/58 (74) 99 Room Air 06/24/19 21:49 99 Room Air 06/24/19 21:46 98 Room Air 06/24/19 20:00 36.9 74 20 133/77 (95) 100 Room Air 06/24/19 19:45 Room Air 06/24/19 19:00 90 06/24/19 16:06 95 Room Air 06/24/19 16:00 36.9 66 18 112/66 (81) 100 Room Air 06/24/19 12:21 85 06/24/19 12:00 36.9 69 18 118/69 (85) 100 Room Air 06/24/19 10:29 98 Room Air I & O 06/25/19 07:00 Intake Total 2420 ml Output Total 1500 ml Balance 920 ml Height & Weight Height: 5'4.00" Weight: 165lbs. oz. 74.258735ya; 31.29 BMI Method:Stated General Appearance: No Apparent Distress, WD/WN HEENT: PERRL/EOMI Neck: Non Tender, Supple Respiratory: Lungs Clear, Normal Breath Sounds, No Accessory Muscle Use, No Respiratory Distress Cardiovascular: Regular Rate, Rhythm, No Murmur Capillary Refill: Less Than 3 Seconds Gastrointestinal: normal bowel sounds, non tender, soft Extremity: No Pedal Edema Neurologic/Psychiatric: Alert, Oriented x3 Skin: Normal Color, Warm/Dry Lymphatic: No Adenopathy Results Lab Laboratory Tests 06/24/19 04:55 Assessment/Plan Assessment/Plan Inflenza B -Tamiflu started on 06/21 Asthma Exacerbation -Duonebs Q4h -Solumedrol 40mg Q6h -Singulair 10mg PO daily -Advair 2 puffs BID DVT prophylaxis -SCDMEAGHAN Dumas MED STUDENT Jun 25, 2019 10:23
[2019-06-25 12:00] VITALS: BP 142/91
[2019-06-25] MEDS ORDERED: RELABEL FOR HOME USE MC SCH (12:00)
[2019-06-25] MEDS ORDERED: OSLT75C PO (12:05)
[2019-06-25] MEDS ORDERED: FLUT12AE4 IH (12:05)
[2019-06-25] MEDS ORDERED: MONT10TA24 PO (12:05)
[2019-06-25] MEDS ORDERED: RT-ALBUINH IH (12:05)
[2019-06-25] MEDS ORDERED: PRED10TA22 PO (12:05)
--- NOTE | 2019-06-25 12:10 | Discharge Inst-Simple/Standard ---
Discharge Inst-Standard Reconcile Patient Problems Problems Reviewed?: Yes Discharge Medications New, Converted or Re-Newed RX: Transmitted to Pharmacy Patient Instructions/Follow Up Plan of Care/Instructions/FU: Please continue take your medications as written. Please follow up with [facility] and with Dr Reed. Activity as Tolerated: Yes Discharge Diet: No Restrictions Return to The Hospital For: Shortness of breath, fever, chest pain, weakness, if you feel you are getting worse. Planned Outpatient Orders/Ref. Pneu Vac Indicated: Yes ANTONIA ALVES MD Jun 25, 2019 12:09
[2019-06-25 13:00] VITALS: BP 142/91
[2019-06-25] MEDS ORDERED: OSELTAMIVIR 75 MG (TAMIFLU) CAPSULE PO SCH (13:00)
--- NOTE | 2019-06-25 13:18 | NUR ---
contacted [facility] pharmacy to have prescriptions run through the [employer] plan cost given to patient and she stated would be able to pay for copay. advair 3 inhalers $22.06 proair 3 inhalers $21.97 Montelukast #90 $21.97 Prednisone tablets $13.98
--- NOTE | 2019-06-25 14:16 | Discharge Summary ---
Diagnosis/Chief Complaint Date of Admission Jun 21, 2019 at 10:31 Date of Discharge Discharge Date: Jun 25, 2019 Admission Diagnosis Primary Care No,Local Physician Discharge Diagnosis (1) Asthma with acute exacerbation in adult Status: Acute (2) Acute respiratory failure with hypoxia Status: Acute (3) Influenza B Status: Acute Discharge Summary Procedures/Consulations Pulm- Dr Reed Discharge Physical Exam Allergies: Coded Allergies: No Known Drug Allergies (Verified , 06/20/19) Vitals & I&Os Vital Signs Date Time Temp Pulse Resp B/P (MAP) Pulse Ox O2 Delivery O2 Flow Rate FiO2 06/25/19 12:17 74 06/25/19 12:00 36.7 20 142/91 (108) 100 Room Air 06/22/19 20:00 30.00 21.00 06/22/19 15:34 21 General Appearance: No Apparent Distress, WD/WN Respiratory: No Accessory Muscle Use, No Respiratory Distress, Wheezing (scant) Cardiovascular: Regular Rate, Rhythm, No Murmur Hospital Course patient is a 23-year-old -[place] female who was admitted due to influenza B and secondary acute asthma exacerbation. She was started on Tamiflu. She is also treated for her asthma exacerbation with stimulants, small-volume nebulizers, Advair, and Singulair. Her symptoms slowly improved and she was able to be weaned off of oxygen. She is discharged home in stable condition at her request. Prescriptions were sent to [facility] to access of [facility] pharmacy program. She is follow-up with [facility] and Dr. Reed for continued management of her asthma. Labs (last 24 hrs) Microbiology 06/20/19 Urine Culture - Final, Complete 3 or more isolates 06/20/19 Blood Culture - Preliminary, Resulted No growth 06/20/19 Influenza Types A,B Antigen (DAVID) - Final, Complete Patient resulted labs reviewed. Imaging: Reviewed Imaging Report Discussion & Recommendations Discharge Planning: >30 minutes discharge planning Discharge Home Medications: Active Scripts Active Prednisone 10 Mg Tab.ds.pk 10 Mg PO DAILY Take 6 tabs(60mg)daily,decrease by 1 tab(10mg)every other day. Proair Hfa (Albuterol Sulfate) 1 Puff Puff 2 Puff IH Q4H 1 PUFF = 90 MCG Montelukast Sodium 10 Mg Tablet 10 Mg PO HS Advair Hfa 115-21 Mcg Inhaler (Fluticasone/Salmeterol) 12 Gm Hfa.aer.ad 0 Puff IH BID@, Tamiflu (Oseltamivir Phosphate) 75 Mg Cap 75 Mg PO BID Instructions to patient/family Please see electronic discharge instructions given to patient. Clinical Quality Measures DVT/VTE Risk/Contraindication: Risk Factor Score Per Nursin RFS Level Per Nursing on Admit: 3=High Problem Qualifiers (1) Asthma with acute exacerbation in adult: Asthma severity: unspecified severity Asthma persistence: unspecified Qualified Codes: J45.901 - Unspecified asthma with (acute) exacerbation ANTONIA ALVES MD Jun 25, 2019 14:16
[2019-06-26] MEDS ORDERED: predniSONE 20 MG TAB PO SCH (07:00)
== END 2019-06-25 13:30 | disposition home or self-care (01) | DRG 193 ==
LOC: EDUNIT# 12:21 → ER 12:22 → ICU 15:15 → CSD 23:30 → OBSVTOIN 06-21 10:31 → 4TH 06-21 18:28
PROVIDERS: ADMIT Internal Medicine; ATTEND Internal Medicine
DX: J10.1 Influenza due to other identified influenza virus with other respiratory manifestations (principal); J96.01 Acute respiratory failure with hypoxia; J45.901 Unspecified asthma with (acute) exacerbation; Z23 Encounter for immunization
CPT/HCPCS: 36415; 71046; 71275; 80048; 80053; 81000; 82805; 83605; 83735; 85025; 85027; 85610; 85730; 87040; 87088; 87804; 93005; 94640; 94644; 94760; 96361; 96365; 96375